=== PATIENT | female | born 1955 | race Caucasian/White ===

== ENCOUNTER 2021-12-05 09:03 | Outpatient (CLI) | payer MEDICARE | END 2021-12-05 09:04 | disposition home or self-care (01) | LOC: CSHCT 09:03 | PROVIDERS: ATTEND Family Medicine | DX: R10.32 Left lower quadrant pain (principal); N20.0 Calculus of kidney; Z90.49 Acquired absence of other specified parts of digestive tract; Z90.710 Acquired absence of both cervix and uterus; K57.30 Diverticulosis of large intestine without perforation or abscess without bleeding | CPT/HCPCS: 74177 ==

== ENCOUNTER 2022-03-23 13:58 | Outpatient (CLI) | payer MEDICARE | END 2022-03-23 13:59 | disposition home or self-care (01) | LOC: CSHMAMMO 13:58 | PROVIDERS: ATTEND Family Medicine | DX: Z13.820 Encounter for screening for osteoporosis (principal); M85.89 Other specified disorders of bone density and structure, multiple sites | CPT/HCPCS: 77080 ==

== ENCOUNTER 2022-07-30 11:25 | Emergency (ER) | payer MEDICARE, OTHER | END 2022-07-30 12:40 | disposition home or self-care (01) | LOC: CSHERS 11:25 | DX: R25.2 Cramp and spasm (principal); M79.604 Pain in right leg ==

== ENCOUNTER 2022-12-14 09:22 | Outpatient (CLI) | payer MEDICARE, OTHER | END 2022-12-14 09:23 | disposition home or self-care (01) | LOC: CSHCT 09:22 | PROVIDERS: ATTEND Family Medicine | DX: M54.12 Radiculopathy, cervical region (principal); M47.812 Spondylosis without myelopathy or radiculopathy, cervical region | CPT/HCPCS: 72125 ==

== ENCOUNTER 2023-01-04 10:55 | Outpatient (CLI) | payer MEDICARE, OTHER | END 2023-01-04 10:56 | disposition home or self-care (01) | LOC: CSHCT 10:55 | PROVIDERS: ATTEND Family Medicine | DX: R41.82 Altered mental status, unspecified (principal); R29.898 Other symptoms and signs involving the musculoskeletal system | CPT/HCPCS: 70450 ==

== ENCOUNTER 2023-10-14 13:57 | Outpatient (CLI) | payer MEDICARE, OTHER | END 2023-10-14 13:58 | disposition home or self-care (01) | LOC: CSHWCC 13:57 | PROVIDERS: ATTEND Physician Assistant | DX: L97.222 Non-pressure chronic ulcer of left calf with fat layer exposed (principal); R93.6 Abnormal findings on diagnostic imaging of limbs | CPT/HCPCS: 97597; G0463; 99213 ==

== ENCOUNTER 2023-10-28 14:11 | Outpatient (CLI) | payer MEDICARE, OTHER | END 2023-10-28 14:12 | disposition home or self-care (01) | LOC: CSHWCC 14:11 | PROVIDERS: ATTEND Preventive Medicine Undersea and Hyperbaric Medicine | DX: I87.332 Chronic venous hypertension (idiopathic) with ulcer and inflammation of left lower extremity (principal); I87.2 Venous insufficiency (chronic) (peripheral); R60.0 Localized edema | CPT/HCPCS: 29581; G0463; 99213 ==

== ENCOUNTER 2023-11-01 08:37 | Outpatient (CLI) | payer MEDICARE, OTHER | END 2023-11-01 08:38 | disposition home or self-care (01) | LOC: CSHWCC 08:37 | PROVIDERS: ATTEND Preventive Medicine Undersea and Hyperbaric Medicine | DX: I87.332 Chronic venous hypertension (idiopathic) with ulcer and inflammation of left lower extremity (principal); L97.929 Non-pressure chronic ulcer of unspecified part of left lower leg with unspecified severity; I87.2 Venous insufficiency (chronic) (peripheral); R60.0 Localized edema | CPT/HCPCS: 29581 ==

== ENCOUNTER 2023-11-05 13:34 | Outpatient (CLI) | payer MEDICARE, OTHER | END 2023-11-05 13:35 | disposition home or self-care (01) | LOC: CSHWCC 13:34 | PROVIDERS: ATTEND Physician Assistant | DX: I87.332 Chronic venous hypertension (idiopathic) with ulcer and inflammation of left lower extremity (principal); L97.929 Non-pressure chronic ulcer of unspecified part of left lower leg with unspecified severity; I87.2 Venous insufficiency (chronic) (peripheral); R60.0 Localized edema | CPT/HCPCS: 97597 ==

== ENCOUNTER 2023-12-08 09:24 | Outpatient (CLI) | payer MEDICARE, OTHER | END 2023-12-08 09:25 | disposition home or self-care (01) | LOC: CSHWCC 09:24 | PROVIDERS: ATTEND Preventive Medicine Undersea and Hyperbaric Medicine | DX: I87.332 Chronic venous hypertension (idiopathic) with ulcer and inflammation of left lower extremity (principal); I87.2 Venous insufficiency (chronic) (peripheral); L97.929 Non-pressure chronic ulcer of unspecified part of left lower leg with unspecified severity; R60.0 Localized edema | CPT/HCPCS: 99213; G0463 ==

== ENCOUNTER 2023-12-29 15:32 | Outpatient (CLI) | payer MEDICARE, OTHER | END 2023-12-29 15:33 | disposition home or self-care (01) | LOC: CSHWCC 15:32 | PROVIDERS: ATTEND Physician Assistant | DX: I87.332 Chronic venous hypertension (idiopathic) with ulcer and inflammation of left lower extremity (principal); L97.929 Non-pressure chronic ulcer of unspecified part of left lower leg with unspecified severity; I87.2 Venous insufficiency (chronic) (peripheral); R60.0 Localized edema | CPT/HCPCS: 99213; G0463 ==

== ENCOUNTER 2024-02-22 13:40 | Outpatient (CLI) | payer MEDICARE | END 2024-02-22 13:41 | disposition home or self-care (01) | LOC: CSHWCC 13:40 | PROVIDERS: ATTEND Nurse Practitioner Family | DX: L97.312 Non-pressure chronic ulcer of right ankle with fat layer exposed (principal); S90.01XD Contusion of right ankle, subsequent encounter; I73.9 Peripheral vascular disease, unspecified | CPT/HCPCS: 11042; 11045; G0463; 99214 ==

== ENCOUNTER 2024-04-04 11:14 | Outpatient (CLI) | payer MEDICARE, OTHER | END 2024-04-04 11:15 | disposition home or self-care (01) | LOC: CSHWCC 11:14 | PROVIDERS: ATTEND Nurse Practitioner Family | DX: S90.01XD Contusion of right ankle, subsequent encounter (principal); L97.312 Non-pressure chronic ulcer of right ankle with fat layer exposed; I73.9 Peripheral vascular disease, unspecified | CPT/HCPCS: 11042 ==

== ENCOUNTER 2024-04-18 13:23 | Outpatient (CLI) | payer MEDICARE | END 2024-04-18 13:24 | disposition home or self-care (01) | LOC: CSHWCC 13:23 | PROVIDERS: ATTEND Nurse Practitioner Family | DX: S90.01XD Contusion of right ankle, subsequent encounter (principal); L97.312 Non-pressure chronic ulcer of right ankle with fat layer exposed; I73.9 Peripheral vascular disease, unspecified | CPT/HCPCS: 11042 ==

== ENCOUNTER 2024-06-02 16:04 | Outpatient (CLI) | payer MEDICARE, OTHER | END 2024-06-02 16:05 | disposition home or self-care (01) | LOC: CSHWCC 16:04 | PROVIDERS: ATTEND Nurse Practitioner Family | DX: S90.01XD Contusion of right ankle, subsequent encounter (principal); L97.312 Non-pressure chronic ulcer of right ankle with fat layer exposed; I73.9 Peripheral vascular disease, unspecified | CPT/HCPCS: 11042 ==

== ENCOUNTER 2024-08-25 14:10 | Outpatient (CLI) | payer MEDICARE, OTHER | END 2024-08-25 14:11 | disposition home or self-care (01) | LOC: CSHWCC 14:10 | PROVIDERS: ATTEND Nurse Practitioner Family | DX: L97.312 Non-pressure chronic ulcer of right ankle with fat layer exposed (principal); I73.9 Peripheral vascular disease, unspecified | CPT/HCPCS: 11042; 99213; G0463 ==

== ENCOUNTER 2024-09-01 13:02 | Outpatient (CLI) | payer MEDICARE, OTHER | END 2024-09-01 13:03 | disposition home or self-care (01) | LOC: CSHWCC 13:02 | PROVIDERS: ATTEND Nurse Practitioner Family | DX: L97.312 Non-pressure chronic ulcer of right ankle with fat layer exposed (principal); I73.9 Peripheral vascular disease, unspecified | CPT/HCPCS: 11042 ==

== ENCOUNTER 2024-09-07 15:45 | Outpatient (CLI) | payer MEDICARE, OTHER | END 2024-09-07 15:46 | disposition home or self-care (01) | LOC: CSHWCC 15:45 | PROVIDERS: ATTEND Nurse Practitioner Family | DX: L97.312 Non-pressure chronic ulcer of right ankle with fat layer exposed (principal); I73.9 Peripheral vascular disease, unspecified | CPT/HCPCS: 11042 ==

== ENCOUNTER 2024-09-15 11:54 | Outpatient (CLI) | payer MEDICARE, OTHER | END 2024-09-15 11:55 | disposition home or self-care (01) | LOC: CSHWCC 11:54 | PROVIDERS: ATTEND Nurse Practitioner Family | DX: L97.312 Non-pressure chronic ulcer of right ankle with fat layer exposed (principal); I73.9 Peripheral vascular disease, unspecified | CPT/HCPCS: 11042; G0463; 99213 ==

== ENCOUNTER 2024-09-21 12:48 | Outpatient (CLI) | payer MEDICARE, OTHER | END 2024-09-21 12:49 | disposition home or self-care (01) | LOC: CSHWCC 12:48 | PROVIDERS: ATTEND Nurse Practitioner Family | DX: L97.312 Non-pressure chronic ulcer of right ankle with fat layer exposed (principal); I73.9 Peripheral vascular disease, unspecified | CPT/HCPCS: 11042 ==

== ENCOUNTER 2024-09-28 12:41 | Outpatient (CLI) | payer MEDICARE, OTHER | END 2024-09-28 12:42 | disposition home or self-care (01) | LOC: CSHWCC 12:41 | PROVIDERS: ATTEND Nurse Practitioner Family | DX: L97.312 Non-pressure chronic ulcer of right ankle with fat layer exposed (principal); I73.9 Peripheral vascular disease, unspecified | CPT/HCPCS: 15271; G0463; Q4133; 99213 ==

== ENCOUNTER 2024-10-06 12:34 | Outpatient (CLI) | payer MEDICARE, OTHER | END 2024-10-06 12:35 | disposition home or self-care (01) | LOC: CSHWCC 12:34 | PROVIDERS: ATTEND Nurse Practitioner Family | DX: L97.312 Non-pressure chronic ulcer of right ankle with fat layer exposed (principal); I73.9 Peripheral vascular disease, unspecified | CPT/HCPCS: 97597 ==

== ENCOUNTER 2024-10-13 12:35 | Outpatient (CLI) | payer MEDICARE, OTHER | END 2024-10-13 12:36 | disposition home or self-care (01) | LOC: CSHWCC 12:35 | PROVIDERS: ATTEND Nurse Practitioner Family | DX: I87.311 Chronic venous hypertension (idiopathic) with ulcer of right lower extremity (principal); L97.312 Non-pressure chronic ulcer of right ankle with fat layer exposed; L97.212 Non-pressure chronic ulcer of right calf with fat layer exposed; I73.9 Peripheral vascular disease, unspecified | CPT/HCPCS: 11042; 87070; 87205; G0463; 99213 ==

== ENCOUNTER 2024-10-20 12:32 | Outpatient (CLI) | payer MEDICARE, OTHER | END 2024-10-20 12:33 | disposition home or self-care (01) | LOC: CSHWCC 12:32 | PROVIDERS: ATTEND Nurse Practitioner Family | DX: I87.311 Chronic venous hypertension (idiopathic) with ulcer of right lower extremity (principal); L97.212 Non-pressure chronic ulcer of right calf with fat layer exposed; L97.312 Non-pressure chronic ulcer of right ankle with fat layer exposed; I73.9 Peripheral vascular disease, unspecified | CPT/HCPCS: 11042 ==

== ENCOUNTER 2024-10-27 12:01 | Outpatient (CLI) | payer MEDICARE | END 2024-10-27 12:02 | disposition home or self-care (01) | LOC: CSHWCC 12:01 | PROVIDERS: ATTEND Nurse Practitioner Family | DX: I87.311 Chronic venous hypertension (idiopathic) with ulcer of right lower extremity (principal); L97.312 Non-pressure chronic ulcer of right ankle with fat layer exposed; L97.212 Non-pressure chronic ulcer of right calf with fat layer exposed; I73.9 Peripheral vascular disease, unspecified | CPT/HCPCS: 99212; G0463 ==

== ENCOUNTER 2025-10-02 07:53 | Observation (INO) | payer MEDICARE, OTHER ==
[2025-10-02] MEDS ORDERED: Lidocaine 1% (PF) 30 ML VIAL ONE (08:24)
[2025-10-02 08:31] LABS: #Basophils 0.04 10x3/uL (0.0-0.2); #Eosinophils 0.09 10x3/uL (0.0-0.5); #Monocytes 0.64 10x3/uL (0.0-1.1); #Neutrophils 6.61 10x3/uL (1.5-8.4); %Basophils 0.5 % (0.0-2.0); %Eosinophils 1.0 % (0.0-6.0); %Lymphocytes 14.7 % (18.0-47.0); %Monocytes 7.4 % (0.0-10.0); %Neutrophils 76.1 % (40.0-75.0); Hematocrit 38.0 % (34.9-44.5); Hemoglobin 13.2 g/dL (12.0-15.5); Mean Corpuscular Hemoglobin 32.6 pg (27.0-33.0); Mean Corpuscular Volume 93.8 fL (81.6-98.3); Platelet Count 169 10x3/uL (150-450); Red Blood Cell (RBC) Count 4.05 10x6/uL (3.90-5.03); White Blood Cell (WBC) Count 8.69 10x3/uL (3.5-10.5)
[2025-10-02 08:52] LABS: ALT (SGPT) 19 U/L (Less than 34); AST (SGOT) 23 U/L (11-34); Albumin 4.2 g/dL (3.1-4.5); Alkaline Phosphatase 55 U/L (40-110); Anion Gap 15 mmol/L (10-20); BUN (Urea Nitrogen) 22 mg/dL (9.8-20.1); Bilirubin, Total 1.2 mg/dL (0.3-1.2); Calc. Creatinine Clearance 0 mL/min (70-130); Calcium 9.7 mg/dL (7.8-10.44); Carbon Dioxide 22 mmol/L (23-31); Chloride 106 mmol/L (98-107); Globulin 2.3 g/dL (2.4-3.5); Glucose 100 mg/dL (80-115); Lipase 12 U/L (8-78); Magnesium 1.8 mg/dL (1.6-2.6); Potassium 4.1 mmol/L (3.5-5.1); Sodium 139 mmol/L (136-145)
[2025-10-02] MEDS ORDERED: Acetaminophen 500 MG TAB ONE (08:54)
[2025-10-02 08:59] LABS: Troponin I Less than 0.010 ng/mL (< 0.028)
[2025-10-02] MEDS ORDERED: Acetaminophen 325 MG TAB PO PRN (11:28)
[2025-10-02] MEDS ORDERED: HYDROcodone/Acetaminophen 5/325 mg Tablet ONE (12:59)
[2025-10-02] MEDS: HYDROcodone/Acetaminophen 5/325 mg Tablet PO PRN (13:00)
[2025-10-02 13:12] LABS: Glucose, Urine (Dipstick) Normal (Negative); Leukocyte Negative (Negative); Protein, Urine (Dipstick) 15 mg/dl (Neg-Trace); Specific Gravity, Urine 1.010 (1.005-1.030)
[2025-10-02 13:20] LABS: CAUTI Indications for Culture Alt mental st,lethar; RBC/HPF 0-3 HPF (0-3); WBC/HPF 0-3 HPF (0-3)
[2025-10-02 13:21] LABS: Bacteria/HPF 3+ HPF (None Seen); Urine Culture Reflex No No
[2025-10-02 17:22] VITALS: BMI 27.2
[2025-10-02] MEDS ORDERED: clonazePAM 0.5 MG TAB PO PRN (18:36)
[2025-10-02] MEDS: Rosuvastatin 20 MG TAB PO SCH (20:22)
[2025-10-02] MEDS: QUEtiapine 25 MG TAB PO SCH (20:23)
[2025-10-02] MEDS: lamoTRIgine 100 MG TAB PO SCH (20:24)
[2025-10-02] MEDS: Ketorolac Tromethamine 30 MG (1 mL) VIAL IVP SCH (20:44)
[2025-10-03 05:17] LABS: #Basophils 0.04 10x3/uL (0.0-0.2); #Eosinophils 0.14 10x3/uL (0.0-0.5); #Monocytes 0.69 10x3/uL (0.0-1.1); #Neutrophils 5.47 10x3/uL (1.5-8.4); %Basophils 0.5 % (0.0-2.0); %Eosinophils 1.8 % (0.0-6.0); %Lymphocytes 20.4 % (18.0-47.0); %Monocytes 8.6 % (0.0-10.0); %Neutrophils 68.4 % (40.0-75.0); Hematocrit 39.0 % (34.9-44.5); Hemoglobin 13.4 g/dL (12.0-15.5); Mean Corpuscular Hemoglobin 33.1 pg (27.0-33.0); Mean Corpuscular Volume 96.3 fL (81.6-98.3); Platelet Count 162 10x3/uL (150-450); Red Blood Cell (RBC) Count 4.05 10x6/uL (3.90-5.03); White Blood Cell (WBC) Count 7.99 10x3/uL (3.5-10.5)
[2025-10-03 05:32] LABS: Anion Gap 14 mmol/L (10-20); BUN (Urea Nitrogen) 24 mg/dL (9.8-20.1); Calc. Creatinine Clearance 61 mL/min (70-130); Calcium 9.0 mg/dL (7.8-10.44); Carbon Dioxide 20 mmol/L (23-31); Chloride 110 mmol/L (98-107); Glucose 99 mg/dL (80-115); Potassium 4.3 mmol/L (3.5-5.1); Sodium 140 mmol/L (136-145)
[2025-10-03] MEDS: Enoxaparin 40 MG (0.4 mL) SYRINGE SC SCH (10:13)
[2025-10-03] MEDS: Folic Acid 1 MG TAB PO SCH (10:14)
[2025-10-03] MEDS: Pantoprazole 40 MG DR.TAB PO SCH (10:14)
[2025-10-03] MEDS: Aspirin 81 mg Enteric Coated Tablet PO SCH (10:14)
[2025-10-03] MEDS: Lisinopril 20 MG TAB PO SCH (10:15)
[2025-10-03 11:40] VITALS: BP 129/60
[2025-10-03 11:59] VITALS: TEMP 98.9
[2025-10-03] MEDS: Acetaminophen/Codeine 30-300mg Tablet PO PRN (12:33)
== END 2025-10-03 16:52 | disposition home or self-care (01) ==
LOC: CSHERS 07:53 → CSHERHOLD 10:35 → CSHTELE 17:00
PROVIDERS: ADMIT Internal Medicine; ATTEND Internal Medicine
PROC: B24BZZZ Ultrasonography of Heart with Aorta (ICD-10-PCS; principal; 2025-10-02)
DX: R55 Syncope and collapse (principal); I10 Essential (primary) hypertension; G43.909 Migraine, unspecified, not intractable, without status migrainosus; G24.3 Spasmodic torticollis; E03.9 Hypothyroidism, unspecified; I35.1 Nonrheumatic aortic (valve) insufficiency; F32.A Depression, unspecified; Z88.0 Allergy status to penicillin; Z79.82 Long term (current) use of aspirin; Z79.890 Hormone replacement therapy; Z79.899 Other long term (current) drug therapy
CPT/HCPCS: 12002; 70450; 70486; 71045; 72125; 80048; 80053; 81001; 83690; 83735; 84484; 85025 ×2; 90471; 90715; 93005; 93306; 93880; 96372; 96374; 96375; 97116; 97530; 99285; G0378 ×3; J1650; J1885; J2003; J2272; 36415